=== PATIENT | male | born 2000 | race Hispanic/Latino ===

== ENCOUNTER 2024-08-26 21:38 | Emergency (ER) | payer SELFPAY ==
[2024-08-26] MEDS ORDERED: Meclizine HCl 25 MG TAB ONE (22:29)
[2024-08-26 22:31] LABS: #Basophils 0.05 10x3/uL (0.0-0.2); #Eosinophils 0.32 10x3/uL (0.0-0.5); #Monocytes 0.77 10x3/uL (0.0-1.1); #Neutrophils 7.64 10x3/uL (1.5-8.4); %Basophils 0.5 % (0.0-2.0); %Eosinophils 3.2 % (0.0-6.0); %Lymphocytes 11.9 % (18.0-47.0); %Monocytes 7.7 % (0.0-10.0); %Neutrophils 76.3 % (40.0-75.0); Hemoglobin 14.5 g/dL (13.5-17.5); Mean Corpuscular HGB CONC 34.5 g/dL (32.0-36.0); Mean Corpuscular Hemoglobin 29.5 pg (27.0-33.0); Mean Corpuscular Volume 85.4 fL (81.2-95.1); Mean Platelet Volume 10.4 fL (7.4-10.4); Platelet Count 317 10x3/uL (150-450); RBC Distribution Width 13.2 % (11.5-14.5); Red Blood Cell (RBC) Count 4.92 10x6/uL (4.32-5.72); White Blood Cell (WBC) Count 10.01 10x3/uL (3.5-10.5)
[2024-08-26 22:52] LABS: ALT (SGPT) 63 U/L (Less than 45); AST (SGOT) 35 U/L (11-34); Albumin 4.2 g/dL (3.1-4.5); Alkaline Phosphatase 87 U/L (40-110); Anion Gap 11 mmol/L (10-20); BUN (Urea Nitrogen) 16 mg/dL (8.9-20.6); Bilirubin, Total 0.3 mg/dL (0.3-1.2); Calc. Creatinine Clearance 0 mL/min (70-130); Calcium 9.2 mg/dL (7.8-10.44); Carbon Dioxide 26 mmol/L (22-29); Chloride 105 mmol/L (98-107); Estimated GFR 126; Globulin 3.3 g/dL (2.4-3.5); Glucose 86 mg/dL (70-105); Lipase 41 U/L (8-78); Potassium 3.8 mmol/L (3.5-5.1); Protein, Total 7.5 g/dL (6.0-8.3); Sodium 138 mmol/L (136-145)
[2024-08-26 22:57] LABS: Troponin I Less than 0.010 ng/mL (< 0.028)
== END 2024-08-26 23:55 | disposition home or self-care (01) ==
LOC: CSHERS 21:38
DX: R42 Dizziness and giddiness (principal); R00.0 Tachycardia, unspecified; R29.700 NIHSS score 0; Z87.891 Personal history of nicotine dependence
CPT/HCPCS: 36415; 80053; 83690; 83735; 84484; 85025; 93005

== ENCOUNTER 2024-08-27 23:07 | Emergency (ER) | payer SELFPAY | END 2024-08-28 01:20 | disposition left against medical advice (07) | LOC: CSHERS 23:07 | DX: Z53.21 Procedure and treatment not carried out due to patient leaving prior to being seen by health care provider (principal); Z79.891 Long term (current) use of opiate analgesic | CPT/HCPCS: 93005 ==